=== PATIENT | male | born 1950 | race Caucasian/White ===

== ENCOUNTER 2020-03-26 16:41 | Outpatient (CLI) | payer MEDICARE, OTHER | END 2020-03-26 16:42 | disposition home or self-care (01) | LOC: COV 16:41 | PROVIDERS: ATTEND Family Medicine | DX: R53.83 Other fatigue (principal); R09.81 Nasal congestion; J02.9 Acute pharyngitis, unspecified; R68.83 Chills (without fever); Z20.828 Contact with and (suspected) exposure to other viral communicable diseases ==

== ENCOUNTER 2023-03-13 15:09 | Emergency (ER) | payer MEDICARE, OTHER ==
--- NOTE | 2023-03-13 16:36 | ED Physician Documentation ---
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 He has been under a lot of stress, he was recently diagnosed with prostate cancer and was to go today for a second round of [employer] radiation. This is being done at [facility]. Last night around 10 PM he became confused, could not operate his phone, could not really figure out how to get dressed. There were no focal symptoms per se that I can elicit on history and he is much better today. He is accompanied by his . PD PAST MEDICAL HISTORY - Allergies Allergies/Adverse Reactions: Allergies Allergy/AdvReac Type Severity Reaction Status Date / Time ciprofloxacin [From Cipro] AdvReac Unknown Verified 03/13/23 15:36 Quinolones AdvReac Unknown Verified 03/13/23 15:36 Sulfa (Sulfonamide AdvReac Rash Verified 03/13/23 15:36 Antibiotics) PD ED PE NORMAL - Vitals Vital signs reviewed: Yes - General General: Alert and oriented X 3, No acute distress, Other (In electric wheelchair) - HEENT HEENT: PERRL, EOMI - Neck Neck: Supple, no meningeal sign, No bony TTP - Cardiac Cardiac: Other (Irregularly irregular without murmur) - Respiratory Respiratory: No respiratory distress, Clear bilaterally - Neuro Neuro: Alert and oriented X 3, Other (Insensate in the legs and no motor strength in the legs, chronic. Upper extremity strength, [id number] testing, and cranial nerve testing is all normal. I did not test cranial nerve I.) Eye Opening: Spontaneous Motor: Obeys Commands Verbal: Oriented GCS Score: 15 Results - Vitals Vitals: Vital Signs - 24 hr 03/13/23 03/13/23 03/13/23 15:30 15:34 17:34 Temperature 36.3 C L 36.5 C Heart Rate 61 60 60 Respiratory 20 20 16 Rate Blood Pressure 132/75 H 132/75 H 130/72 O2 Saturation 98 98 100 Oxygen O2 Source Room air - Labs Labs: Laboratory Tests 03/13/23 03/13/23 16:50 16:50 WBC 6.4 RBC 4.25 L Hgb 13.1 L Hct 39.2 L MCV 92.2 MCH 30.8 MCHC 33.4 RDW 13.5 Plt Count 191 MPV 11.0 Neut # (Auto) 4.5 Lymph # (Auto) 1.4 L [place] # (Auto) 0.4 Eos # (Auto) 0.1 Baso # (Auto) 0.1 Absolute Nucleated RBC 0.00 Nucleated RBC % 0.0 Sodium 141 Potassium 3.8 Chloride 106 Carbon Dioxide 26 Anion Gap 9.0 BUN 14 Creatinine 0.7 Estimated GFR (MDRD) 111 Glucose 81 Calcium 9.8 Total Bilirubin 0.7 AST 37 ALT 23 Alkaline Phosphatase 98 Total Protein 7.2 Albumin 4.3 Globulin 2.9 Albumin/Globulin Ratio 1.5 PD Medical Decision Making - ED course Complexity details: reviewed results (CBC and CMP showing mild anemia, normocytic, no priors for comparison, otherwise normal/negative. ) ED course: 72-year-old gentleman with history of TIA and A-fib on Xarelto presents with a history more consistent with resolving/almost resolved transient global amnesia with no strokelike symptoms or signs on exam noting that he is chronically paraplegic at a T12 level from an ependymoma. Blood work was unremarkable. He was waiting for a CT of his head and he and his became frustrated with the wait and left without discharge instructions. Given that he has had significant improvement I am okay writing him up for discharge but I was not able to talk to them prior to them leaving and he left without instructions. Departure - Departure Disposition: 01 Home, Self Care Clinical Impression: Transient global amnesia Condition: Stable Comments: Patient left prior to the completion of work-up and without discharge instructions. Forms: PCP List
[2023-03-13 16:57] LABS: BASOPHILS # (AUTO) 0.1 10^3/uL (0.0-0.1); BASOPHILS % (AUTO) 0.8 %; EOSINOPHILS # (AUTO) 0.1 10^3/uL (0.0-0.7); EOSINOPHILS % (AUTO) 0.9 %; HCT - HEMATOCRIT 39.2 % (42.0-52.0); HGB - HEMOGLOBIN 13.1 g/dL (14.0-18.0); LYMPHOCYTES # (AUTO) 1.4 10^3/uL (1.5-3.5); MEAN CORPUSCULAR HEMOGLOBIN 30.8 pg (27.0-31.0); MEAN CORPUSCULAR HGB CONC 33.4 g/dL (32.0-36.0); MEAN CORPUSCULAR VOLUME 92.2 fL (80.0-94.0); MONOCYTES # (AUTO) 0.4 10^3/uL (0.0-1.0); MONOCYTES % (AUTO) 6.4 %; NEUTROPHILS # (AUTO) 4.5 10^3/uL (1.5-6.6); NEUTROPHILS % (AUTO) 69.6 %; PLT - PLATELET COUNT 191 10^3/uL (130-450); RED BLOOD COUNT 4.25 10^6/uL (4.70-6.10); RED CELL DISTRIBUTION WIDTH 13.5 % (12.0-15.0); WHITE BLOOD COUNT 6.4 x10^3/uL (4.8-10.8)
[2023-03-13 17:11] LABS: ALBUMIN 4.3 g/dL (3.2-5.5); ALBUMIN/GLOBULIN RATIO 1.5 (1.0-2.2); BILIRUBIN,TOTAL 0.7 mg/dL (0.2-1.0); CALCIUM 9.8 mg/dL (8.5-10.3); CREATININE 0.7 mg/dL (0.6-1.3); POTASSIUM 3.8 mmol/L (3.5-4.5); TOTAL PROTEIN 7.2 g/dL (6.4-8.9)
[2023-03-13 17:58] VITALS: BP 130/72; O2SAT 100
== END 2023-03-13 18:34 | disposition home or self-care (01) ==
LOC: ED 15:09
DX: G45.4 Transient global amnesia (principal); G82.20 Paraplegia, unspecified
CPT/HCPCS: 36415; 80053; 85025; 99283; 99284